=== PATIENT | male | born 1960 | race Caucasian/White ===

== ENCOUNTER 2021-02-21 08:23 | Day surgery (SDC) | payer OTHER ==
[~2021-02-21] VITALS: Ht 170 cm; Wt 121.0 kg
[~2021-02-21 08:23] MED LIST: ADVIL200 MG PO; CARVEDILOL ER40 MG PO; CRESTOR10 MG PO; HCTZ25 MG PO; PRINIVIL20 MG PO; XARELTO10 MG PO
[2021-02-21 09:23] LABS: HCT 46.4 % (42.0-52.0); HGB 15.8 g/dl (13.2-18.0); MCH 30.1 pg (25.0-31.0); MCHC 34.1 g/dL (32.0-36.0); MCV 88.4 fL (78.0-100.0); MPV 9.8 fL (6.0-9.5); RBC 5.25 M/uL (4.70-6.00); RDW 13.5 % (11.5-14.0); WBC 9.9 K/uL (4.0-10.5)
--- NOTE | 2021-02-21 15:36 | NUR ---
PT. WILL D/C HOME WITH SPOUSE. PT. HAS A ROLLING WALKER. HE HAS MADE HIS OWN APPT WITH [facility] IN [place] FOR Sun02/23/21,
[2021-02-22 06:22] LABS: BASOPHIL 0.2 % (0-2); EOSINOPHIL 0.2 % (0-5); HCT 39.9 % (42.0-52.0); HGB 12.6 g/dl (13.2-18.0); MCH 29.5 pg (25.0-31.0); MCHC 31.6 g/dL (32.0-36.0); MONOCYTE 7.1 % (0-12); MPV 9.8 fL (6.0-9.5); NEUTROPHIL 80.8 % (41-80); NRBC 0; PLT 198 K/uL (150-400); RBC 4.27 M/uL (4.70-6.00); RDW 13.6 % (11.5-14.0)
[2021-02-22 06:31] LABS: MCV 93.4 fL (78.0-100.0)
[2021-02-22 07:25] LABS: BUN/CREAT RATIO (CALC) 16.2 RATIO; CREATININE 1.17 mg/dL (0.67-1.17); POTASSIUM 4.4 mmol/L (3.5-5.1)
[2021-02-22] MEDS ORDERED: OXYCODONE-ACET1 EAC1 PO (10:00)
[2021-02-22] MEDS ORDERED: XARELTO10 MG PO (10:00)
[2021-02-22] MEDS ORDERED: FEOSOL325 MG PO (10:00)
== END 2021-02-22 13:05 | disposition home or self-care (01) ==
LOC: FAS 08:23 → FMS 08:23 → FAS 11:00 → FMS 12:36 → FAS 02-22 13:05
PROVIDERS: Anesthesiology; Legal Medicine
DX: M17.12 Unilateral primary osteoarthritis, left knee (principal); M25.762 Osteophyte, left knee; M67.262 Synovial hypertrophy, not elsewhere classified, left lower leg; I10 Essential (primary) hypertension; E78.5 Hyperlipidemia, unspecified
CPT/HCPCS: 36415; 73560; 80048; 85025; 86850; 86900; 86901; 94010; 94762; 97110; 97162; 97165; 97530-GP; 97535; C1713; C1776; J0171; J0697; J1100; J1170; J1885; J2250; J2270; J2405; J2704; J2795; J3010; J7120